=== PATIENT | male | born 1985 | race African-American/Black ===

== ENCOUNTER 2018-06-22 19:19 | Emergency (ER) | payer OTHER ==
[~2018-06-22] VITALS: Ht 175.3 cm; Wt 81.7 kg
[2018-06-22 19:35] LABS: URINE BILIRUBIN NEGATIVE (Negative); URINE BLOOD NEGATIVE (Negative); URINE CLARITY CLEAR; URINE COLOR YELLOW; URINE GLUCOSE-RANDOM* NEGATIVE (Negative); URINE KETONES NEGATIVE (Negative); URINE LEUKOCYTES NEGATIVE (Negative); URINE NITRITE NEGATIVE (Negative); URINE PROTEIN (DIPSTICK) NEGATIVE (Negative); URINE SPECIFIC GRAVITY 1.025 (1.005-1.035); URINE UROBILINOGEN 0.2 E.U./dl (0.2-1.0)
[2018-06-22 19:47] LABS: HEMOGLOBIN 15.1 gm/dL (14.0-18.0); MCH 29.4 pg (26.0-34.0); MCHC 34.2 g/dL (28.0-37.0); MCV 85.9 fL (80.0-100.0); PLATELET COUNT 276 thou/uL (150-400); RBC 5.13 mil/uL (4.50-6.00); RDW 14.2 % (10.5-14.5); WBC 6.6 thou/uL (4.0-11.0)
[2018-06-22 20:04] LABS: CALCIUM 9.1 mg/dL (8.5-10.1); CREATININE 1.2 mg/dL (0.7-1.3); POTASSIUM 3.2 mmol/L (3.5-5.1)
[2018-06-22 20:14] LABS: TOTAL BILIRUBIN 0.5 mg/dL (<0.1-1.0)
[2018-06-22 20:19] LABS: ANISOCYTOSIS 1+
[2018-06-22] MEDS ORDERED: KLOR-CON 1010 MEQ PO (22:27)
[2018-06-22] MEDS ORDERED: BENTYL 20 MG TA20 M1 PO (22:28)
[2018-06-22] MEDS ORDERED: MIRALAX17 GM PO (22:42)
[2018-06-22 22:44] VITALS: BP 125/81
== END 2018-06-22 22:50 | disposition home or self-care (01) ==
LOC: ER 19:19
PROVIDERS: Emergency Medicine
DX: R14.0 Abdominal distension (gaseous) (principal); E87.6 Hypokalemia

== ENCOUNTER 2018-06-26 00:55 | Emergency (ER) | payer OTHER ==
[~2018-06-26] VITALS: Ht 175.3 cm; Wt 81.7 kg
[~2018-06-26 00:55] MED LIST: BENTYL 20 MG TA20 M1 PO; KLOR-CON 1010 MEQ PO; MIRALAX17 GM PO
[2018-06-26 01:52] LABS: ABSOLUTE NEUTROPHILS 7.5 thou/uL (1.4-8.2); BASOPHILS 0.3 % (0.0-2.0); HEMATOCRIT 43.9 % (42.0-52.0); HEMOGLOBIN 14.9 gm/dL (14.0-18.0); LYMPHOCYTES 5.4 % (24.0-44.0); MCH 29.5 pg (26.0-34.0); MCHC 33.9 g/dL (28.0-37.0); MONOCYTES 2.5 % (1.0-8.0); PLATELET COUNT 290 thou/uL (150-400); POLYS 91.8 % (36.0-66.0); RBC 5.05 mil/uL (4.50-6.00); WBC 8.2 thou/uL (4.0-11.0)
[2018-06-26 01:59] LABS: URINE BILIRUBIN NEGATIVE (Negative); URINE BLOOD NEGATIVE (Negative); URINE CLARITY CLEAR; URINE COLOR YELLOW; URINE GLUCOSE-RANDOM* NEGATIVE (Negative); URINE KETONES 3+ (Negative); URINE LEUKOCYTES-REFLEX NEGATIVE (Negative); URINE NITRITE-REFLEX NEGATIVE (Negative); URINE PROTEIN (DIPSTICK) TRACE (Negative); URINE SPECIFIC GRAVITY >= 1.030 (1.005-1.035); URINE UROBILINOGEN 0.2 E.U./dl (0.2-1.0)
[2018-06-26 02:01] LABS: CALCIUM 9.3 mg/dL (8.5-10.1); CREATININE 1.2 mg/dL (0.7-1.3); POTASSIUM 3.8 mmol/L (3.5-5.1)
[2018-06-26 02:07] LABS: ALBUMIN 4.1 g/dL (3.4-5.0); DIRECT BILIRUBIN 0.2 mg/dL (<0.1-0.3); TOTAL BILIRUBIN 0.8 mg/dL (<0.1-1.0); TOTAL PROTEIN 8.3 g/dL (6.4-8.2)
[2018-06-26] MEDS ORDERED: KRISTALOSE20 GM PO (05:49)
[2018-06-26 05:57] VITALS: BP 145/87
== END 2018-06-26 05:58 | disposition home or self-care (01) ==
LOC: ER 00:55
PROVIDERS: Emergency Medicine
DX: K59.00 Constipation, unspecified (principal)

== ENCOUNTER 2018-06-26 19:30 | Inpatient (IN) | payer OTHER ==
[~2018-06-26] VITALS: Ht 175.3 cm; Wt 82.0 kg
[2018-06-26 19:30] VITALS: BP 149/87
[~2018-06-26 19:30] MED LIST changes: +KRISTALOSE20 GM PO
[2018-06-26 20:07] LABS: HEMATOCRIT 42.4 % (42.0-52.0); HEMOGLOBIN 14.5 gm/dL (14.0-18.0); MCH 29.3 pg (26.0-34.0); MCHC 34.3 g/dL (28.0-37.0); MCV 85.6 fL (80.0-100.0); RBC 4.95 mil/uL (4.50-6.00); WBC 10.3 thou/uL (4.0-11.0)
[2018-06-26 20:11] LABS: CREATININE 1.2 mg/dL (0.7-1.3); POTASSIUM 3.6 mmol/L (3.5-5.1)
[2018-06-26 20:25] LABS: ALBUMIN 2.4 g/dL (3.4-5.0); DIRECT BILIRUBIN 0.2 mg/dL (<0.1-0.3); TOTAL BILIRUBIN 0.4 mg/dL (<0.1-1.0); TOTAL PROTEIN 4.7 g/dL (6.4-8.2)
[2018-06-26 21:51] VITALS: BP 143/63
[2018-06-26 21:53] VITALS: BP 143/63
[2018-06-26 22:17] VITALS: BP 157/88
--- NOTE | 2018-06-27 03:05 | NUR ---
PT ARRIVED FROM ED 2315. ASESSMENT COMPLETE. VSS. ORIENTED TO ROOM. ADMISSION COMPLETE. PT DENIES N/V AT THIS TIME. REPORTS PAIN, SEE EMAR. IV DRESSING C/D/I, NO SIGNS OF INFILTRATION. WILL CONTINUE POC UNTIL EOS.
[2018-06-27 04:51] VITALS: BP 148/91
[2018-06-27 08:06] VITALS: BP 134/74
--- NOTE | 2018-06-27 14:23 | NUR ---
PT ADMITTED RELATED TO ABDOMINAL PAIN. CM REVIEWED CHART AND SPOKE WITH CARE TEAM. CM MET WITH PT AT BEDSIDE THIS DAY. PT IS A&O X4. CM ROLE INTRODUCED. PT INDICATED HE LIVES IN A HOUSE WITH 1 ADULT AND 3 CHILDREN. PT INDICATED THERE ARE 3 STEPS TO ENTER AND 12 STEPS INSIDE. 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 PT INDICATED HE PLANS TO RETURN HOME ONCE MEDICALLY STABLE. CM TO FOLLOW INDICATED WITH DC PLANNING. CM TO FOLLOW INDICATED WITH DC PLANNING.
--- NOTE | 2018-06-27 17:18 | NUR ---
PT PROVIDED WITH SAFETY NET PACKET and prescription drug discount card
[2018-06-27 17:20] VITALS: BP 137/73
[2018-06-27 19:20] VITALS: BP 134/68
[2018-06-28 04:14] VITALS: BP 132/77
--- NOTE | 2018-06-28 04:41 | NUR ---
ASSUMED PT CARE 1900. PT ALERT AND ORIENRED. VSS. IV DRESSING C/D/I, NO SIGNS OF INFITLRATION. PT REPORTS NAUSEA AND PAIN, SEE EMAR. PT UNABLE TO COMPLETE BOWEL PREP, WILL FOLLOW UP WIHT GI IN AM. PT CALL LIGHT WITHIN REACH. WILL CONTINUE POC UNTIL EOS.
[2018-06-28 09:26] VITALS: BP 139/85
[2018-06-28 15:43] VITALS: BP 125/82
[2018-06-28 20:00] VITALS: BP 146/85
--- NOTE | 2018-06-29 04:27 | NUR ---
ASSUMED PT CARE 1899. PT ALERT AND ORIENTED. UP AD GENIE IN ROOM. REASSESSMENT COMPLETE. VSS. PT REPORTS NAUSEA AND PAIN, SEE EMAR. IV DRESSING C/D/I, NO SIGNS OF INFILTRATION. PT CALL LIGHT AND PERSONAL BELONINGS WITHIN REACH. WILL OCNTINUE POC UNTIL EOS.
[2018-06-29 05:48] VITALS: BP 125/65
[2018-06-29 08:52] VITALS: BP 127/82
--- NOTE | 2018-06-29 12:44 | NUR ---
ASSUMED CARE AT 0700, SHIFT ASSESSMENT DONE, VSS. ON CLEAR LIQUIDS, DID NOT WANT TO EAT OR DRINK ANYTHING. BOWEL SOUNDS ARE HYPOACTIVE. REPORTED PAIN, PRN PAIN MEDS GIVEN. STARTED ON PPN, SLEPT MOST OF THE DAY. MIGHT GO FOR SURGERY EITHER TOMORROW OR WEDNESDAY. WILL CONTINUE TO ASSESS AND ASSIST WITH ADLs NEEDED.
[2018-06-29 16:00] VITALS: BP 140/89
--- NOTE | 2018-06-29 16:06 | PATH ---
Formerly [facility] [address] [place] [address] PATHOLOGY RPT PROCEDURE Name: IWLLIAM THORPE Room #: 424-P ADM IN M.R.#: [id number] ������������������ Admission: 06/26/18 ������������������ Date of : 83 Discharge: Report #: [id number] Path Case #: [id number] [facility] Accession Number: [id number] . 01 Material submitted: . colon - BX DESCENDING COLON R/O COLITIS. Modifiers: descending . 01 Clinical history: . Pre-OP DX: Colonic obstruction, possible mass per CT Post-OP DX: Stricture/mass . 02 Diagnosis: Large intestine, descending colon rule out colitis, endoscopic biopsy: - TUBULAR ADENOMA WITH HIGH-GRADE DYSPLASIA, HISTORY OF STRICTURED MASS. - No definite invasion identified. (IUV:pit 06/29/2018) QTP/06/29/2018 . 02 Comment: This case was co-reviewed by Dr. Bernadette Henson who concurs with my diagnosis. (IUV:pit 06/29/2018) . 02 Electronically signed: . Meka James MD, Pathologist NPI- [id number] . 01 Gross description: . Received in formalin labeled "William Thorpe, BX descending colon, rule out colitis," are 4 segments of mcdonough soft tissue measuring 1.0 x 0.6 x 0.2 cm in aggregate dimensions and ranging from 0.3 to 0.4 cm in maximum dimension. The specimen is submitted entirely in cassette A1. (TSD; 06/28/2018) TOB/TOB . 02 Pathologist provided ICD-10: D12.4 . 02 CPT . 378885 Specimen Comment: A courtesy copy of this report has been sent to Specimen Comment: [phone], . Specimen Comment: Report sent to / DR SOMERS Performed at: [address] [facility] [address] [place] [address] [id number] MD Kushal Mary MD Phone: [phone] [place] [address] PATHOLOGY RPT PROCEDURE Name: WILLIAM THORPE KEELY Room #: 424-P [facility] IN M.R.#: [id number] ������������������ Admission: 06/26/18 ������������������ Date of : 83 Discharge: Report #: [id number] Path Case #: [id number] Performed at: [address] [id number] MD Meka James MD Phone: [phone]
[2018-06-29 23:21] VITALS: BP 133/75
--- NOTE | 2018-06-30 01:45 | NUR ---
NPO AFTER MIDNOC. CONTINUES TO C/O GENERALISED ABDOMINAL PAIN, RATING IT IN THE RANGE OF 7-10/10. FENTANYL PROVIDING SOME RELIEF. PT GETS NAUSEATED WHEN HE GETS UP TO USE THE BATHROOM. HE REMAINS UP AD GENIE. VSS. PLAN FOR SURGERY TOMORROW.CONTINUES ON IVF AND PPN. WILL CONTINUE ALSO WITH POC TILL EOS.
[2018-06-30 07:51] VITALS: BP 138/84
--- NOTE | 2018-06-30 10:43 | NUR ---
PATIENT TAKEN TO SURGERY AT THIS TIME. NO PAIN AT PRESENT NO RESP DISTRESS. IV ANNA HAS SCD'S.
--- NOTE | 2018-06-30 11:16 | NUR ---
Nutrition: PPN started. Meets 40% kcal needs, 104% protein needs. Pt with very little po > 1 week. Consider add 250 mL 20% lipids daily to meet 64% kcal needs.
[2018-06-30 15:38] VITALS: BP 148/67
--- NOTE | 2018-06-30 15:50 | NUR ---
PATIENT RETURNED FROM SURGERY AT 1522 PT DROWSY, NO PAIN NO RESP DISTRESS. IV FLUIDS INFUSING AND PPN INFUSING. COLOSTOMY INTACT. 4 LAP SITES WITH DURMA SHETH INTACT. PT TO HAVE CLEAR LIQUID DIET WHEN HE FEELS LIKE IT. VS..97.7 16 90 148/67 O2 SAT = 98 % ON 1 L/NC. FRIEND AT BEDSIDE.
[2018-06-30 17:29] VITALS: BP 139/78
[2018-06-30 20:12] VITALS: BP 129/81
[2018-07-01 03:53] VITALS: BP 143/91
--- NOTE | 2018-07-01 04:07 | NUR ---
PT REQUIRES PAIN MEDS ROUGHLY Q2HRS. FAIR RELIEF OF PAIN OBTAINED.ABDOMINAL LAP SITES LOOK OK. COLOSTOMY WITH SMALL AMT OF BLOODY OUTPUT.
[2018-07-01 04:56] LABS: CALCIUM 8.3 mg/dL (8.5-10.1); POTASSIUM 3.9 mmol/L (3.5-5.1)
[2018-07-01 06:02] LABS: HEMOGLOBIN 13.3 gm/dL (14.0-18.0); MCH 29.6 pg (26.0-34.0); MCV 86.9 fL (80.0-100.0); RBC 4.49 mil/uL (4.50-6.00); RDW 13.7 % (10.5-14.5); WBC 4.2 thou/uL (4.0-11.0)
[2018-07-01 08:16] VITALS: BP 128/84
--- NOTE | 2018-07-01 08:18 | P ---
[facility] [place] [address] PROCEDURE REPORT Name: SARAI SWIFT Room #: 424-P ADM IN M.R.#: [id number] Admission: 06/26/18 ������������������ Attend Phys: Sally Christina Discharge: ������������������ Date of : 83 Report #: [id number] THIS REPORT FOR: //name// CC: GREG physician/PCP Sally Chandler MD DATE OF SERVICE: 06/28/2018 PROCEDURE PERFORMED: Flexible sigmoidoscopy with biopsies and tattoo. HISTORY OF PRESENT ILLNESS: The patient is a 33-year-old male who was admitted on 06/26/2018 for abdominal pain and constipation. CT scan of the abdomen and pelvis on 06/26/2018 shows possible descending colonic mass with obstruction. In the mid descending colon, there was a short segment mass-like area of circumferential mural thickening about 3.5 cm in length with moderate upstream distention and relative downstream decompression. The appearance raises concern for an annular mass, otherwise negative study. Plan is for colonoscopy today. DESCRIPTION OF PROCEDURE: The risks and benefits of the procedure were explained to the patient, those risks including, but not limited to, bleeding, perforation, the risk of sedation. He understood these risks and gave informed consent. Sedation was given using propofol per anesthesia. Next, a digital rectal exam was initially performed, which was normal. Next, using a standard Olympus colonoscope, the scope was placed in the patient's anus and advanced under direct vision to approximately 60 cm at which point I was not able to advance the scope any further despite multiple attempts. At this point, I removed the colonoscope and proceeded with an attempt with a standard EGD Olympus upper endoscope. Again, I was able to advance the scope to 60 cm at which point there was a mass/stricture/area of inflammation that I was unable to pass. It was difficult to visualize. This could be a malignancy or chronic inflammation due to inflammatory bowel disease. I did obtain several biopsies. I also tattooed this area submucosally. The scope was then slowly withdrawn. The remaining sigmoid colon and rectum were normal. There was a small amount of stool in this area as well. The scope was then withdrawn and the procedure terminated. The patient tolerated the procedure well. IMPRESSION: Near obstructing mass/stricture or area of inflammation at 60 cm from the anus in the descending colon, which corresponds to recent CT scan findings. Etiology is unclear at this point; however, the patient will likely need a surgical resection, would recommend awaiting biopsies. The area was tattooed today. I spoke with Dr. Chandler to give him an update. Plan is to continue clear liquids at this time and a slow prep in order to [address] [address] PROCEDURE REPORT Name: SARAI SWIFT Room #: 424-P [facility] IN M.R.#: [id number] Admission: 06/26/18 ������������������ Attend Phys: Sally Christina Discharge: ������������������ Date of : 83 Report #: [id number] hopefully clear the colon prior to surgical resection in the near future. Thank you for allowing me to participate in his care. ��������������������������������������������� <ELECTRONICALLY SIGNED> ���������������������������������������� By: Viraj Ortega MD ��������������������������������������������� 07/01/18 0818 1427 0533 Viraj Ortega MD /nt
--- NOTE | 2018-07-01 09:23 | O ---
[facility] [place] [address] [address] OPERATIVE REPORT Name: SARAI SWIFT Room #: 424-P ADM IN M.R.#: [id number] Admission: 06/26/18 ������������������ Attend Phys: Sally Christina Discharge: ������������������ Date of : 83 Report #: [id number] THIS REPORT FOR: //name// CC: GREG physician/PCP Sally Christina DATE OF SERVICE: 06/30/2018 PREOPERATIVE DIAGNOSIS: Obstructing left colon mass. POSTOPERATIVE DIAGNOSIS: Obstructing left colon mass. PROCEDURES PERFORMED: 1. Laparoscopic sigmoid colectomy with Gaby's procedure (end descending colostomy). 2. Laparoscopic mobilization of the splenic flexure. SURGEON: iTmoteo Chandler M.D. SHAKER OPERATOR: Warren Liz M.D. ANESTHESIA: General endotracheal anesthesia. ESTIMATED BLOOD LOSS: Minimal (less than 20 mL). COMPLICATIONS: None appreciated. SPECIMENS: 1. Sigmoid colon to pathology. 2. Proximal staple line to pathology. INDICATIONS: The patient is a 33-year-old -[place] male who was in his usual state of health until a few days ago when he developed intense nausea, vomiting and abdominal distention, for which he presented to the Emergency Room and was found to have a circumferential mass of the descending and sigmoid colon region. The patient underwent attempted bowel prep by Gastroenterology, which he was unable to complete and underwent colonoscopy with inability to traverse the circumferential mass, but biopsies showed an adenoma with high-grade dysplasia highly concerning for colon cancer. As the patient is obstructed and was unable to prep, indication was for the above-mentioned procedures today. DESCRIPTION OF PROCEDURE: After explaining the risks, benefits and alternatives of the procedure with the patient in detail and obtaining consent, the patient was brought to the operating room, placed supine on the operating room table. After conducting a thorough timeout procedure, verifying correct patient and procedure, the patient was given general endotracheal anesthesia. Once adequate [facility] [address] [place] [address] OPERATIVE REPORT Name: SARAI SWIFT Room #: 424-P [facility] IN ..#: [id number] Admission: 06/26/18 ������������������ Attend Phys: Sally Christina Discharge: ������������������ Date of : 83 Report #: [id number] anesthesia was obtained, his SCDs were hooked up to pneumatic compression device. He was given a preoperative dose of antibiotics in line with the SCIP protocol. The patient's abdomen was prepped and draped in standard surgical sterile fashion. A 5 mL of 0.5% Marcaine with epinephrine were used to anesthetize the skin 2 cm cephalad to the umbilicus and 2 cm to the patient's right. A #15 bladed scalpel was used to create a small skin argelia at this location. A 5 mm Visiport was placed over 0 degree 5 mm laparoscope and was introduced through this incision site. Once intra-abdominal placement was verified visually, the obturator for the trocar and laparoscope were both removed and the abdomen was insufflated to 15 mmHg using carbon dioxide gas. The laparoscope was changed to a 5-mm 30-degree laparoscope, which was reintroduced through this trocar. The entire abdomen was evaluated to ensure no injury upon entry. I now placed 2 additional trocars, a 5-mm port was placed in the left lateral abdomen and a 12-mm port was placed in the right lower quadrant. Both additional trocars were placed under direct vision after anesthetizing the skin at each location with 5 mL of 0.5% Marcaine with epinephrine. I had created appropriately sized skin nicks using #15 bladed scalpel. The patient was now placed in Trendelenburg with the left side elevated and we were easily able to identify the tattooed circumferential mass at the juncture of the descending and sigmoid colons. The sigmoid colon was elevated and I made a window in the mesentery at the rectosigmoid juncture. This window was made using the articulating EnSeal advanced energy device. Once this window was made, the Ranlo 60 mm stapler with a blue load was entered into the abdomen where a blade was passed through the window in the mesentery. The stapler was clamped and fired completely transecting the bowel at the rectosigmoid juncture. The proximal staple line was elevated and I took down the mesentery using the EnSeal device in a cephalad direction. I continued this until we arrived upon the mass in question, which was stuck to the abdominal side wall. I was able to free this by taking down the white line of Toldt with the EnSeal device. I continued taking down the mesentery as low on the mesentery as possible to attain adequate leila sampling. I continued taking this down until we were able to arrive approximately 7-8 cm proximal to the lesion. Attempts in bringing this to the abdominal wall at the left lateral trocar site were unsuccessful and as that was the appropriate site for a colostomy. It required me to perform a laparoscopic mobilization of the splenic flexure. The EnSeal device was used to take down the splenic flexure all the way to the midtransverse, which allowed the entire colon to drop into the mid abdomen. We now proceeded to desufflate the abdomen. The left lateral trocar site was elongated to approximately 2.5 cm in length. This was carried down to the fascial level controlled with the trocar. I then placed a wound protector through the wound and then grasped the proximal staple line of the bowel with a Samuel clamp and delivered this through the wound protector. We transected the bowel approximately 6 cm proximal to the colon mass in question as it was quite taut and delivering it through the abdominal wall. This was transected using another firing of the Ranlo blue load 60 stapler. The mass was opened on the back table showing 6 cm of margin between the mass and healthy colon. [address] [address] OPERATIVE REPORT Name: SWIFTSARAI ALAN Room #: 424-P ADM IN M.R.#: [id number] Admission: 06/26/18 ������������������ Attend Phys: Sally Christina Discharge: ������������������ Date of : 83 Report #: [id number] Evaluation of the intra-abdominal domain showed complete hemostasis. I closed the right lower quadrant 12 mm trocar incision using 0 PDS suture on a Kel-Marko suture passer device and tied this down under direct vision. We ensured ourselves that there was no twisting to the colon and as such, the abdomen was fully desufflated. The staple line of the colon was now elevated with Allis clamps and transected with curved To scissors and this was passed off the field as specimen as well due to this being a high likelihood of cancer. I then matured the ostomy using several sutures of 3-[address] full thickness imbricating sutures at the 12, 3, 6, and 9 o'clock positions in standard Sarah fashion. I then matured the mucocutaneous juncture in each resultant quadrants using short runs of 3-0 Vicryl, taking full thickness bites and anchoring it to the dermis. Digital finger intubation of the colon at this time showed a patent colostomy to a subfascial level that was not stenotic. This appeared well vascularized, healthy and pink. The abdomen had been fully desufflated. All trocars removed and skin was closed using 4-0 Monocryl in standard subcuticular fashion. Dermabond glue was then applied to those skin wounds and sterile ostomy appliance was applied as well. At the completion of the procedure, all instrument, needle and sponge counts were correct. The patient tolerated the procedure without incident, was awakened in the operating room and transitioned to the recovery room in stable condition with no apparent complications. ��������������������������������������������� <ELECTRONICALLY SIGNED> ���������������������������������������� By: Timoteo Chandler MD, FACS ��������������������������������������������� 07/01/18 0923 1420 1606 Timoteo Chandler MD, FACS /nt
[2018-07-01 17:29] VITALS: BP 129/84
--- NOTE | 2018-07-01 18:48 | NUR ---
ASSUMED CARE OF PT AT 0700. ASSESSMENT COMPLETED. A&O,X4. C/O ABD PAIN, PAIN MEDS GIVEN ORDERED. FRESH COLOSTOMY, SMALL AMOUNT OF SANGINOUS DRAINAGE NOTED IN BAG. SITE AROUND STOMA INTACT. PT UP WALKING IN HALLWAYS. VOIDING PER URINAL. CALL LIGHT WITHIN REACH. MAKES NEEDS KNOWN. PT IN STABLE CONDITION.
[2018-07-01 19:22] VITALS: BP 147/81
[2018-07-02 04:08] VITALS: BP 132/82
--- NOTE | 2018-07-02 04:49 | NUR ---
PT CONTINUES TO HAVE ABDOMINAL PAIN.PAIN MEDS ADMINSTERED ROUND THE CLOCK. DENIES NAUSEA. VOIDS ADEQUATELY PER URINAL.COLOSTOMY WITH SCANT AMOUNTS OF BLOOD. PT C/O A GASEOUS STOMACH-CONTNUES TO AMBULATE THE HALLWAYS.VSS.ON CLEAR LIQUIDS. ABDOMINAL LAP SITES LOOK OKAY. STOMACH IS TENDER. SUPPORTIVE FAMILY BY THE BEDSIDE. WILL CONTINUE WITH POC.
[2018-07-02 05:03] LABS: CALCIUM 8.5 mg/dL (8.5-10.1); CREATININE 0.9 mg/dL (0.7-1.3); POTASSIUM 3.8 mmol/L (3.5-5.1)
[2018-07-02 05:06] LABS: HEMATOCRIT 38.6 % (42.0-52.0); HEMOGLOBIN 12.8 gm/dL (14.0-18.0); MCH 28.9 pg (26.0-34.0); MCHC 33.2 g/dL (28.0-37.0); PLATELET COUNT 246 thou/uL (150-400); RBC 4.44 mil/uL (4.50-6.00); RDW 13.9 % (10.5-14.5); WBC 6.3 thou/uL (4.0-11.0)
[2018-07-02 07:45] VITALS: BP 128/76
[2018-07-02 08:08] LABS: ABSOLUTE NEUTROPHILS 3.7 thou/uL (1.4-8.2)
--- NOTE | 2018-07-02 08:14 | NUR ---
RECEIVED PT APPROX 0715. RESTING IN BED. C/O PAIN MANAGED BY MEDS ORDERED. NO SOA. NO NV. UP AD GENIE. COLOSTOMY GOOD OUTPUT. WILL CONT. TO MONITOR.
[2018-07-02 16:46] VITALS: BP 128/78
[2018-07-02 20:25] VITALS: BP 139/80
--- NOTE | 2018-07-03 02:57 | NUR ---
Assumed care of pt at 1900. Pt alert and oriented x4. C/o generalized abdominal pain. Prn pain meds administered. 350ml emptied from colostomy bag at start of shift. Pt c/o difficulty breathing. Abd distended, scant output from colostomy bag noted. Procedure Manager on duty notified. Abd xray, kub and chest xray ordered. Prn breathing treatments ordered as well. Awaiting results. Will continue to monitor.
[2018-07-03 04:24] LABS: HEMATOCRIT 36.8 % (42.0-52.0); HEMOGLOBIN 12.5 gm/dL (14.0-18.0); MCH 29.4 pg (26.0-34.0); MCHC 33.9 g/dL (28.0-37.0); MCV 86.7 fL (80.0-100.0); PLATELET COUNT 268 thou/uL (150-400); RBC 4.25 mil/uL (4.50-6.00); RDW 13.5 % (10.5-14.5); WBC 7.2 thou/uL (4.0-11.0)
[2018-07-03 04:31] VITALS: BP 134/84
[2018-07-03 04:38] LABS: ALBUMIN 2.7 g/dL (3.4-5.0); CALCIUM 8.5 mg/dL (8.5-10.1); CREATININE 1.1 mg/dL (0.7-1.3); POTASSIUM 3.8 mmol/L (3.5-5.1)
[2018-07-03 06:00] LABS: ABSOLUTE NEUTROPHILS 5.2 thou/uL (1.4-8.2); METAMYELOCYTES 1 %; PLATELET ESTIMATE NORMAL
[2018-07-03 07:21] VITALS: BP 138/85
--- NOTE | 2018-07-03 11:41 | NUR ---
RECEIVED PT APPROX 0700. RESTING IN BED. PAIN MANAGED BY MEDS ORDERED. DENIES NV. NO NOTED SOA. COLOSTOMY PRODUCING LIQUID STOOL. WILL CONT. TO MONITOR.
[2018-07-03 15:39] VITALS: BP 141/90
[2018-07-03 19:37] VITALS: BP 269/90
[2018-07-03 22:18] VITALS: BP 148/85
[2018-07-04 04:58] VITALS: BP 136/54
[2018-07-04 08:54] VITALS: BP 156/84
[2018-07-04] MEDS ORDERED: HYDROCODONE-AP1 EAC6 PO (10:31)
[2018-07-04] MEDS ORDERED: COLACE 100 MG100 MG PO (10:31)
--- NOTE | 2018-07-04 11:02 | NUR ---
ASSESMENT COMPLETED. VSS. A/O. PAIN MANAGED BY MEDS ORDERED. SOA W/ EXERTION. NV MANAGED BY MEDS ORDERED. COLOSTOMY INTACT- PT ABLE TO EMPTY. PT RESTING IN BED APPEARS COMFORTABLE. WILL CONT. TO MONITOR.
--- NOTE | 2018-07-04 15:05 | PATH ---
[facility] [place] [address] PATHOLOGY RPT PROCEDURE Name: WILLIAM THORPE Room #: 424-P ADM IN M.R.#: [id number] ������������������ Admission: 06/26/18 ������������������ Date of : 83 Discharge: Report #: [id number] Path Case #: [id number] [facility] Accession Number: [id number] . 01 Material submitted: . colon - LEFT HEMICOLON. Modifiers: left . 01 Clinician provided ICD-10: C18.6 . 01 Clinical history: . Obstructing colon mass . 02 Frozen section diagnosis: . INTRAOPERATIVE DIAGNOSIS Large intestine, left hemicolectomy: - Malignant-appearing strictured lesion, approximately 4.5 cm away from the stapled closest margin. . These findings are discussed with the surgeons, Dr. Timoteo Mg and Dr. Juan R Liz in OR-1 at [facility]. . (IUV:principal java developer; 06/30/2018) . Intraoperative consultation performed at [facility], [address] [place] [address]. IZNaa/MBR . 02 Diagnosis: Large intestine, left hemicolon, left hemicolectomy: - MODERATELY DIFFERENTIATED INVASIVE COLONIC ADENOCARCINOMA MEASURING 3.0 CM IN GREATEST DIMENSION EXTENDING TO THE VISCERAL PERITONEUM (PLEASE SEE SYNOPTIC REPORT ASSEMBLED). - Extensive perineural invasion and lymphovascular space invasion present. - Margins of resection free of malignancy; closest to proximal margin is 4.5 cm away. - Eighteen lymph nodes showing reactive changes; negative for malignancy (0/18). . (IUV:poly; 07/04/2018) . . Surgical Pathology Cancer Case Summary . Protocol posting date: July 2016 . . COLON AND RECTUM: Resection, Including Transanal Disk Excision of Rectal [address] [address] PATHOLOGY RPT PROCEDURE Name: WILLIAM THORPE Room #: 424-P [facility] IN M.R.#: [id number] ������������������ Admission: 06/26/18 ������������������ Date of : 83 Discharge: Report #: [id number] Path Case #: [id number] Neoplasms . Procedure ___ Left hemicolectomy . Tumor Site ___ Left (descending) colon . Tumor Size Greatest dimension (centimeters): 3.0 cm . Macroscopic Tumor Perforation ___ Not identified . Histologic Type ___ Adenocarcinoma . Histologic Grade ___ G2 : Moderately differentiated . Tumor Extension ___ Tumor invades the visceral peritoneum (including tumor continuous with serosal surface through area of inflammation) . Margins ___ All margins are uninvolved by invasive carcinoma, high-grade dysplasia, intramucosal adenocarcinoma, and adenoma Margins examined: Distance of invasive carcinoma from closest margin: 4.5 cm Specify closest margin: previously opened margin . Treatment Effect ___ No known presurgical therapy . Lymphovascular Invasion ___ Identified . Perineural Invasion ___ Identified . Tumor Deposits ___ Not identified . Regional Lymph Nodes . Number of Lymph Nodes Involved: 0 . Number of Lymph Nodes Examined: 18 [facility] [address] [place] [address] PATHOLOGY RPT PROCEDURE Name: THORPEWILLIAM Room #: 424-P ADM IN ..#: [id number] ������������������ Admission: 06/26/18 ������������������ Date of : 83 Discharge: Report #: [id number] Path Case #: [id number] . Pathologic Stage Classification (pTNM, AJCC 8th Edition) Note: Reporting of pT, pN, and (when applicable) pM categories is based on information available to the pathologist at the time the report is issued. . . Primary Tumor (pT) ___ pT4a: Tumor invades through the visceral peritoneum (including gross perforation of the bowel through tumor and continuous invasion of tumor through areas of inflammation to the surface of the visceral peritoneum) . Regional Lymph Nodes (pN) ___ pN0: No regional lymph node metastasis . Distant Metastasis (pM) (required only if confirmed pathologically in this case) ___ pMX: Not known S/07/04/2018 . 02 Comment: Dr. Bernadette Henson has seen a customer account representative slide of this malignant tumor and concurs with my diagnosis. Four immunohistochemical stains for the MSI panel are ordered and the results of these will be reported in an addendum to follow. (IUV:poly; 07/04/2018) . 02 Electronically signed: . Meka Jmaes MD, Pathologist NPI- [id number] . 01 Gross description: . Received fresh for intraoperative consultation, labeled "William Thorpe, left ludwig colon", is a Left Hemicolectomy specimen consisting of a 21.0 cm long segment of colon and up to 3.0 cm portion of mesenteric fat. The margins are closed by linear staple lines. The proximal is inked blue (7.5 cm circumference) and distal green (6.0 cm circumference). The serosa is mcdonough, focally puckered and indurated, 4.5 cm from the proximal margin. The serosa distal to the puckered, indurated area, consist of black ink tattoo. There is a mcdonough, circumferential, obstructing mass measuring 3.0 x 2.8 cm in surface area and 0.7 cm in height, located 4.5 cm from the nearest proximal margin and 15.8 cm from distal margin. It involves 100 % of the circumference, and there is there dilation of the adjacent proximal bowel. It invades through the bowel wall and is present in the pericolonic fat 0.2 cm from the closest pericolonic margin. The uninvolved mucosa is mcdonough with usual folds. The specimen is placed in "Dissect Aid" to enhance lymph node dissection. Few possible lymph nodes candidates are identified [address] [address] PATHOLOGY RPT PROCEDURE Name: WILLIAM THORPE KEELY Room #: 424-P ADM IN M.R.#: [id number] ������������������ Admission: 06/26/18 ������������������ Date of : 83 Discharge: Report #: [id number] Path Case #: [id number] measuring up to 0.3 cm in greatest dimension. Approximately 90% of pericolonic fat is submitted for possible lymph nodes candidate. . Senior Media Buyer tissue is submitted as follows: A1. Proximal margin, inked blue, en face A2. Distal margin, inked green, en face A3-A4. Mass to closest pericolonic fat margin, inked black. A5-A7. Mass greatest dimension (proximal uninvolved mucosa, to mass to distal uninvolved mucosa), alternating red and yellow ink at intersection A8. Mass A9. Uninvolved mucosa (blue ink = proximal and distal) A10. Several intact, possible lymph nodes candidate A11-A17. Pericolonic fat for possible lymph nodes candidate (SWS; 07/01/2018) SHS/SHS . 02 Pathologist provided ICD-10: C18.6 . 02 CPT . 219338, [id number] Specimen Comment: A courtesy copy of this report has been sent to Specimen Comment: [phone], . Specimen Comment: Report sent to / DR MIRAMONTES Performed at: [address] [facility], [place], [place] [id number] MD Kushal Mary MD Phone: [phone] Performed at: [address] [facility] [id number] MD Meka James MD Phone: [phone]
--- NOTE | 2018-07-04 15:13 | NUR ---
OSTOMY CARE pouch intact, changed using nuria 2 piece system w/ adapt ring under wafer, stoma slightly budded pink viable, peristomal skin intact, loose brown stool noted, very receptive to education, supplies and teaching info left at bs, secure start dc kit ordered for pt and to be sent to home, public health staff nurse informed of care
[2018-07-04 16:07] VITALS: BP 130/88
[2018-07-04 17:47] VITALS: BP 130/88
== END 2018-07-04 20:00 | disposition home or self-care (01) | DRG 330 ==
LOC: ER 19:30 → 4E 21:21 → EROBS 21:21 → 4E 22:08
PROVIDERS: Emergency Medicine; Surgery; ADMIT Hospitalist
PROC: 0DJD8ZZ Inspection of Lower Intestinal Tract, Via Natural or Artificial Opening Endoscopic (ICD-10-PCS; principal; 2018-06-28)
PROC: 0DBM8ZX Excision of Descending Colon, Via Natural or Artificial Opening Endoscopic, Diagnostic (ICD-10-PCS; principal; 2018-06-28)
PROC: 0D1N4Z4 Bypass Sigmoid Colon to Cutaneous, Percutaneous Endoscopic Approach (ICD-10-PCS; 2018-06-30)
PROC: 0DTG4ZZ Resection of Left Large Intestine, Percutaneous Endoscopic Approach (ICD-10-PCS; 2018-06-30)
PROC: 0DBN4ZZ Excision of Sigmoid Colon, Percutaneous Endoscopic Approach (ICD-10-PCS; 2018-06-30)
DX: K56.609 Unspecified intestinal obstruction, unspecified as to partial versus complete obstruction (principal); E46 Unspecified protein-calorie malnutrition; K56.41 Fecal impaction; D12.5 Benign neoplasm of sigmoid colon; E86.0 Dehydration; Z80.0 Family history of malignant neoplasm of digestive organs; Z68.26 Body mass index [BMI] 26.0-26.9, adult
CPT/HCPCS: 10084; 50010; 50101; 50249; 50290; 50386; 50455; 50525; 50555; 50558; 50740; 50804; 50962; 51489; 52265; 53307; 54022; 54118; 56462; 56524; 56525; 56526; 56530; 57092; 62110; 62900; 70005

== ENCOUNTER 2019-08-06 02:09 | Emergency (ER) | payer BC, OTHER ==
[~2019-08-06] VITALS: Ht 175.3 cm; Wt 88.5 kg
[~2019-08-06 02:09] MED LIST changes: +COLACE 100 MG100 MG PO; +HYDROCODONE-AP1 EAC6 PO
[2019-08-06 03:26] LABS: URINE BILIRUBIN NEGATIVE (Negative); URINE BLOOD NEGATIVE (Negative); URINE CLARITY CLEAR; URINE COLOR YELLOW; URINE GLUCOSE-RANDOM* NEGATIVE (Negative); URINE KETONES NEGATIVE (Negative); URINE LEUKOCYTES-REFLEX NEGATIVE (Negative); URINE NITRITE-REFLEX NEGATIVE (Negative); URINE PROTEIN (DIPSTICK) NEGATIVE (Negative); URINE SPECIFIC GRAVITY 1.025 (1.005-1.035)
[2019-08-06 03:28] LABS: HEMATOCRIT 41.1 % (42.0-52.0); HEMOGLOBIN 13.9 gm/dL (14.0-18.0); MCH 29.8 pg (26.0-34.0); MCHC 33.8 g/dL (28.0-37.0); MCV 88.2 fL (80.0-100.0); RBC 4.66 mil/uL (4.50-6.00); RDW 14.1 % (10.5-14.5); WBC 5.7 thou/uL (4.0-11.0)
[2019-08-06 03:33] LABS: CALCIUM 8.1 mg/dL (8.5-10.1); CREATININE 1.2 mg/dL (0.7-1.3); POTASSIUM 3.5 mmol/L (3.5-5.1)
[2019-08-06 03:42] LABS: ALBUMIN 3.9 g/dL (3.4-5.0); TOTAL BILIRUBIN 0.5 mg/dL (0.2-1.0); TOTAL PROTEIN 7.2 g/dL (6.4-8.2)
[2019-08-06] MEDS ORDERED: DOXYCYCLINE 10100 MG PO (04:20)
[2019-08-06 04:32] VITALS: BP 139/85
== END 2019-08-06 04:33 | disposition home or self-care (01) ==
LOC: ER 02:09
PROVIDERS: Emergency Medicine
DX: N45.1 Epididymitis (principal)

== ENCOUNTER 2019-08-17 09:27 | Emergency (ER) | payer BC, OTHER ==
[~2019-08-17] VITALS: Ht 172.7 cm; Wt 88.0 kg
[~2019-08-17 09:27] MED LIST changes: +DOXYCYCLINE 10100 MG PO
[2019-08-17] MEDS ORDERED: COLACE100 MG PO (10:18)
[2019-08-17] MEDS ORDERED: IBU800 MG PO (10:18)
[2019-08-17 11:17] LABS: HEMATOCRIT 42.6 % (42.0-52.0); HEMOGLOBIN 14.2 gm/dL (14.0-18.0); MCH 29.7 pg (26.0-34.0); MCHC 33.5 g/dL (28.0-37.0); MCV 88.8 fL (80.0-100.0); PLATELET COUNT 283 thou/uL (150-400); RBC 4.79 mil/uL (4.50-6.00); RDW 13.9 % (10.5-14.5); WBC 4.8 thou/uL (4.0-11.0)
[2019-08-17 11:26] LABS: URINE BILIRUBIN NEGATIVE (Negative); URINE BLOOD NEGATIVE (Negative); URINE CLARITY CLEAR; URINE COLOR YELLOW; URINE GLUCOSE-RANDOM* NEGATIVE (Negative); URINE KETONES NEGATIVE (Negative); URINE LEUKOCYTES-REFLEX NEGATIVE (Negative); URINE NITRITE-REFLEX NEGATIVE (Negative); URINE PROTEIN (DIPSTICK) NEGATIVE (Negative); URINE UROBILINOGEN 0.2 E.U./dl (0.2-1.0)
[2019-08-17 11:35] LABS: CREATININE 1.3 mg/dL (0.7-1.3); POTASSIUM 3.5 mmol/L (3.5-5.1)
[2019-08-17 11:41] LABS: ALBUMIN 3.9 g/dL (3.4-5.0); TOTAL BILIRUBIN 0.6 mg/dL (0.2-1.0); TOTAL PROTEIN 7.4 g/dL (6.4-8.2)
[2019-08-17 12:39] VITALS: BP 134/81
[2019-08-17 13:20] LABS: ABSOLUTE NEUTROPHILS 2.1 thou/uL (1.4-8.2); ANISOCYTOSIS SLIGHT
[2019-08-18] MEDS ORDERED: IBUPROFEN 600600 M1 PO (01:37)
[2019-08-18] MEDS ORDERED: MIRALAX119 GM PO (15:08)
[2019-08-18] MEDS ORDERED: TRAMADOL 50 MG50 MG PO (17:13)
[2019-08-18] MEDS ORDERED: ONDANSETRON ODT8 MG PO (17:13)
== END 2019-08-17 12:39 | disposition home or self-care (01) ==
LOC: ER 09:27
PROVIDERS: Emergency Medicine
DX: K59.00 Constipation, unspecified (principal); Z93.3 Colostomy status; Z79.899 Other long term (current) drug therapy; Z98.890 Other specified postprocedural states

== ENCOUNTER 2019-08-18 01:15 | Emergency (ER) | payer BC, OTHER ==
[~2019-08-18] VITALS: Ht 172.7 cm; Wt 88.5 kg
[~2019-08-18 01:15] MED LIST changes: +COLACE100 MG PO; +IBU800 MG PO
[2019-08-18 01:20] VITALS: BP 134/92
[2019-08-18] MEDS ORDERED: IBUPROFEN 600600 M1 PO (01:37)
[2019-08-18] MEDS ORDERED: MIRALAX119 GM PO (15:08)
[2019-08-18] MEDS ORDERED: TRAMADOL 50 MG50 MG PO (17:13)
[2019-08-18] MEDS ORDERED: ONDANSETRON ODT8 MG PO (17:13)
== END 2019-08-18 01:49 | disposition home or self-care (01) ==
LOC: ER 01:15
DX: N45.1 Epididymitis (principal); Z79.899 Other long term (current) drug therapy; Z98.890 Other specified postprocedural states

== ENCOUNTER 2019-08-18 14:37 | Emergency (ER) | payer BC, OTHER ==
[~2019-08-18] VITALS: Ht 172.7 cm; Wt 87.5 kg
[~2019-08-18 14:37] MED LIST changes: +IBUPROFEN 600600 M1 PO
[2019-08-18] MEDS ORDERED: MIRALAX119 GM PO (15:08)
[2019-08-18 16:40] LABS: HEMATOCRIT 42.6 % (42.0-52.0); HEMOGLOBIN 14.6 gm/dL (14.0-18.0); MCH 30.1 pg (26.0-34.0); MCHC 34.3 g/dL (28.0-37.0); MCV 87.7 fL (80.0-100.0); RBC 4.86 mil/uL (4.50-6.00); RDW 13.8 % (10.5-14.5); WBC 5.1 thou/uL (4.0-11.0)
[2019-08-18 16:54] LABS: CALCIUM 8.9 mg/dL (8.5-10.1); CREATININE 1.3 mg/dL (0.7-1.3); POTASSIUM 3.5 mmol/L (3.5-5.1)
[2019-08-18 17:00] LABS: ALBUMIN 3.9 g/dL (3.4-5.0); TOTAL BILIRUBIN 0.8 mg/dL (0.2-1.0); TOTAL PROTEIN 7.3 g/dL (6.4-8.2)
[2019-08-18] MEDS ORDERED: ONDANSETRON ODT8 MG PO (17:13)
[2019-08-18] MEDS ORDERED: TRAMADOL 50 MG50 MG PO (17:13)
[2019-08-18 17:26] VITALS: BP 125/79
== END 2019-08-18 17:28 | disposition home or self-care (01) ==
LOC: ER 14:37
PROVIDERS: Emergency Medicine
DX: R10.9 Unspecified abdominal pain (principal); L30.9 Dermatitis, unspecified; K59.00 Constipation, unspecified; Z93.3 Colostomy status

== ENCOUNTER → 2019-08-25 | Outpatient (CLI) | payer BC, OTHER ==
[~2019-08-25] MED LIST changes: +MIRALAX119 GM PO; +ONDANSETRON ODT8 MG PO; +TRAMADOL 50 MG50 MG PO
== END ==
LOC: CAT 10:51
PROVIDERS: ATTEND Surgery
DX: K59.00 Constipation, unspecified (principal); C18.9 Malignant neoplasm of colon, unspecified; R16.0 Hepatomegaly, not elsewhere classified